=== PATIENT | female | born 1990 | race Caucasian/White ===

== ENCOUNTER 2017-02-08 19:29 | Emergency (ER) | payer OTHER ==
[~2017-02-08] VITALS: Ht 170.2 cm; Wt 84.1 kg
[2017-02-08 19:31] VITALS: TEMP 37; Ht 170.2 cm; Wt 84.1 kg
[2017-02-08] MEDS ORDERED: IBUP-1050 PO (20:11)
[2017-02-08] MEDS ORDERED: PHEN-905 PO (20:11)
[2017-02-08] MEDS ORDERED: DiphenhydrAMINE HCL 50 MG/ML VIAL IV STA (20:20)
[2017-02-08] MEDS ORDERED: ACETAMINOPHEN 325 MG TAB PO STA (20:20)
[2017-02-08] MEDS ORDERED: SODIUM CHLORIDE 0.9% 1000ML 1,000 ML IV STA (20:20)
[2017-02-08] MEDS ORDERED: PROCHLORPERAZINE 5 MG/ML 2 ML VIAL IV STA (20:20)
[2017-02-08 21:02] LABS: HEMATOCRIT 38.7 % (37-47); MEAN CELL VOLUME 86.8 fL (80-100); MEAN CORPUSCULAR HEMOGLOBIN 29.1 pg (25-34); MEAN CORPUSCULAR HGB CONC 33.6 g/dl (32-36); MEAN PLATELET VOLUME 10.4 fL (7.4-10.4); PLATELET COUNT 218 K/uL (130-400); RED BLOOD COUNT 4.46 M/uL (4.2-5.4); WHITE BLOOD COUNT 8.88 K/uL (4.8-10.8)
[2017-02-08 21:12] LABS: INR 1.2 (0.9-1.1); PARTIAL THROMBOPLASTIN RATIO 1.3; PROTHROMBIN TIME (PATIENT) 12.4 SECONDS (9.0-12.0)
[2017-02-08 21:24] LABS: BUN/CREATININE RATIO 9.4 (10-20); CALCIUM 8.5 mg/dl (8.5-10.1); CREATININE 0.87 mg/dl (0.60-1.20); POTASSIUM 3.1 mmol/L (3.5-5.1)
[2017-02-08 21:25] LABS: COMPLETE YES; IG% 0.2 %; LYMPH % 6.1 %; LYMPH ABS # 0.54 K/uL (1.2-3.4); MONO % 4.6 %; NEUT % 89.1 %; VACUOLIZATION 1+
--- NOTE | 2017-02-08 22:05 | DIAGNOSTIC IMAGING REPORT ---
CHEST 2 VIEWS ROUTINE CLINICAL HISTORY: Fever. Cough. COMPARISON STUDY: Chest radiograph August 19, 2013. FINDINGS: Lung volumes are normal. There is no pneumothorax or pleural effusion. Cardiac size is normal. Mediastinal contours are normal. There is no evidence of pulmonary edema. There is mild linear and nodular opacity within each lung. There is no lobar consolidation. IMPRESSION: Mild linear and nodular opacities within the lungs. The findings could reflect a mild infectious process or atelectasis. Radiographic follow-up to ensure resolution is recommended. Electronically signed by: Sherif Dash M.D. 02/08/2017 10:03 PM Dictated Date/Time: 02/08/2017 10:02 PM
[2017-02-08 22:06] LABS: LYME DISEASE AB IGG NEG (NEG); LYME DISEASE AB IGM NEG (NEG)
[2017-02-08] MEDS ORDERED: MAGNESIUM SULFATE 1GM / D5W 1 GM BAG IV STA (22:10)
[2017-02-08 22:30] VITALS: BP 105/60
[2017-02-08 22:35] LABS: INFLUENZA A PCR Neg for Influ A (NEG)
[2017-02-08 22:36] LABS: INFLUENZA B PCR POS for Influ B (NEG)
[2017-02-08] MEDS ORDERED: OSELTAMIVIR PHOSPHATE 75 MG CAP PO STA (22:50)
[2017-02-08] MEDS ORDERED: NF406 PO (22:53)
[2017-02-08] MEDS ORDERED: AZIT250T PO (22:53)
[2017-02-08 22:57] VITALS: PULSE 78; O2SAT 93
[2017-02-08] MEDS ORDERED: AZITHROMYCIN 250 MG TAB PO ONE (23:00)
--- NOTE | 2017-02-09 01:15 | EMERGENCY ROOM VISIT NOTE ---
History Report prepared by Nicole: Eloise Seaman Under the Supervision of: Dr. Eren Aguiar M.D. First contact with patient: 20:10 Chief Complaint: FEVER Stated Complaint: FEVER OF 103.5 History of Present Illness The patient is a 26 year old female who presents to the Emergency Room with complaints of an intermittent fever for the past 3 days. Her temperature this evening was 103.5 and she took ibuprofen for her symptoms at 1730. The patient reports a right-sided headache for the past 3 days as well. She has a history of migraine headaches and states that her current headache feels similar to previous migraines. She rates her current pain as a 7/10 in severity and describes it as achy. She notes neck pain, which is not unusual for her migraines. Her headache is not worse with light. The patient has had a productive cough as well. She notes burning pain in the middle of her chest and some shortness of breath with exertion. She had 1 episode of vomiting yesterday. She has not eaten today. The patient denies sore throat, congestion, and any other sinus symptoms. She denies chance of . Her daughter is sick with a cough. The patient did not get a flu shot this year. Source of History: patient Onset: 3 days ago Position: head (fever) Symptom Intensity: 7/10 Quality: ache Timing: intermittent Modifying Factors (Relieving): ibuprofen Associated Symptoms: + chest pain, + cough, + headache, + neck pain, + vomiting, No SOB, No sorethroat Review of Systems See HPI for pertinent positives & negatives. A total of 10 systems reviewed and were otherwise negative. Past Medical & Surgical Medical Problems: (1) Calculus of kidney (2) Migraine headache Family History Diabetes mellitus Heart disease Social History Smoking Status: Current Every Day Smoker Alcohol Use: occasionally Drug Use: none Marital Status: in relationship Housing Status: lives with family Occupation Status: employed Current/Historical Medications Scheduled Azithromycin (Zithromax), 250 MG PO DAILY Ibuprofen (Advil), 200-600 MG PO Q4H Oseltamivir Phosphate (Tamiflu), 75 MG PO BID Ejwbcmeqjpzsf-Ehkjimqaqj-Lmctc (Nyquil Severe Cold/Flu 5-6.25-10-325 mg/15Ml), 15 ML PO DIRECTED Allergies Coded Allergies: No Known Allergies (Verified , 02/08/17) Physical Exam Vital Signs Date Time Temp Pulse Resp B/P Pulse Ox O2 Delivery O2 Flow Rate FiO2 02/08/17 22:57 78 16 93 Room Air 02/08/17 22:30 76 16 105/60 93 Room Air 02/08/17 21:28 86 18 93 Room Air 02/08/17 19:31 37.0 116 18 118/72 94 Room Air Physical Exam Constitutional: Vital signs reviewed. Eyes: Pupils are equal round reactive to light. Conjunctiva are noninjected. ENT: Pharynx is clear without erythema or exudate. Mucous membranes are moist. Neck supple without meningeal signs. Respiratory: Clear to auscultation bilaterally. Breath sounds are equal bilaterally. Cardiovascular: Regular rate and rhythm. No rubs or gallops. GI: Soft, nondistended and nontender. Bowel sounds are present. Musculoskeletal: No peripheral edema. Integumentary: No cyanosis. Neurological: The patient is awake and alert. Cranial nerves II-XII are intact. Motor is 5 out of 5 all extremities. Sensation is intact to light touch all extremities. Normal speech. No pronator drift. Negative Kernig and Brudzinski sign. Psychiatric: Normal affect. Medical Decision & Procedures ER Provider Diagnostic Interpretation: Radiology results as stated below per my review and the radiologist's interpretation: CHEST 2 VIEWS ROUTINE CLINICAL HISTORY: Fever. Cough. COMPARISON STUDY: Chest radiograph August 19, 2013. FINDINGS: Lung volumes are normal. There is no pneumothorax or pleural effusion. Cardiac size is normal. Mediastinal contours are normal. There is no evidence of pulmonary edema. There is mild linear and nodular opacity within each lung. There is no lobar consolidation. IMPRESSION: Mild linear and nodular opacities within the lungs. The findings could reflect a mild infectious process or atelectasis. Radiographic follow-up to ensure resolution is recommended. Electronically signed by: Sherif Dash M.D. 02/08/2017 10:03 PM Dictated Date/Time: 02/08/2017 10:02 PM Laboratory Results 02/08/17 20:46 Red Blood Count 4.46, Mean Corpuscular Volume 86.8, Mean Corpuscular Hemoglobin 29.1, Mean Corpuscular Hemoglobin Concent 33.6, Mean Platelet Volume 10.4, Neutrophils (%) (Auto) 89.1, Lymphocytes (%) (Auto) 6.1, Monocytes (%) (Auto) 4.6, Eosinophils (%) (Auto) 0.0, Basophils (%) (Auto) 0.0, Neutrophils # (Auto) 7.91, Lymphocytes # (Auto) 0.54, Monocytes # (Auto) 0.41, Eosinophils # (Auto) 0.00, Basophils # (Auto) 0.00 02/08/17 20:46 Test 02/08/17 20:46 02/08/17 20:55 White Blood Count 8.88 K/uL (4.8-10.8) Red Blood Count 4.46 M/uL (4.2-5.4) Hemoglobin 13.0 g/dL (12.0-16.0) Hematocrit 38.7 % (37-47) Mean Corpuscular Volume 86.8 fL (80-100) Mean Corpuscular Hemoglobin 29.1 pg (25-34) Mean Corpuscular Hemoglobin Concent 33.6 g/dl (32-36) Platelet Count 218 K/uL (130-400) Mean Platelet Volume 10.4 fL (7.4-10.4) Neutrophils (%) (Auto) 89.1 % Lymphocytes (%) (Auto) 6.1 % Monocytes (%) (Auto) 4.6 % Eosinophils (%) (Auto) 0.0 % Basophils (%) (Auto) 0.0 % Neutrophils # (Auto) 7.91 K/uL (1.4-6.5) Lymphocytes # (Auto) 0.54 K/uL (1.2-3.4) Monocytes # (Auto) 0.41 K/uL (0.11-0.59) Eosinophils # (Auto) 0.00 K/uL (0-0.5) Basophils # (Auto) 0.00 K/uL (0-0.2) RDW Standard Deviation 43.2 fL (36.4-46.3) RDW Coefficient of Variation 13.5 % (11.5-14.5) Immature Granulocyte % (Auto) 0.2 % Immature Granulocyte # (Auto) 0.02 K/uL (0.00-0.02) Toxic Vacuolation 1+ Prothrombin Time 12.4 SECONDS (9.0-12.0) Prothromb Time International Ratio 1.2 (0.9-1.1) Activated Partial Thromboplast Time 32.7 SECONDS (21.0-31.0) Partial Thromboplastin Ratio 1.3 Anion Gap 10.0 mmol/L (3-11) Est Creatinine Clear Calc Drug Dose 109.2 ml/min Estimated GFR () 106.6 Estimated GFR (Non- 91.9 BUN/Creatinine Ratio 9.4 (10-20) Calcium Level 8.5 mg/dl (8.5-10.1) Total Bilirubin 0.4 mg/dl (0.2-1) Direct Bilirubin 0.1 mg/dl (0-0.2) Aspartate Amino Transf (AST/SGOT) 15 U/L (15-37) Alanine Aminotransferase (ALT/SGPT) 16 U/L (12-78) Alkaline Phosphatase 73 U/L (45-117) Total Protein 7.2 gm/dl (6.4-8.2) Albumin 3.7 gm/dl (3.4-5.0) Lyme Disease IgG Antibody NEG (NEG) Lyme Disease IgM Antibody NEG (NEG) Influenza Type A (RT-PCR) Neg for Influ A (NEG) Influenza Type B (RT-PCR) POS for Influ B (NEG) Laboratory results as reviewed by me. Medications Administered Medications (Trade) Dose Ordered Sig/Be Route Start Time Stop Time Status Last Admin Dose Admin Sodium Chloride (Nss 1000ml) 1,000 ml @ 999 mls/hr Q1H1M STAT IV 02/08/17 20:20 02/08/17 21:20 DC 02/08/17 20:51 999 MLS/HR Prochlorperazine Edisylate (Compazine Inj) 10 mg NOW STAT IV 02/08/17 20:20 02/08/17 20:23 DC 02/08/17 20:51 10 MG Diphenhydramine HCl (Benadryl Inj) 50 mg NOW STAT IV 02/08/17 20:20 02/08/17 20:23 DC 02/08/17 20:51 50 MG Acetaminophen (Tylenol Tab) 650 mg NOW STAT PO 02/08/17 20:20 02/08/17 20:23 DC 02/08/17 20:52 650 MG Oseltamivir Phosphate (Tamiflu Cap) 75 mg NOW STAT PO 02/08/17 22:50 02/08/17 22:52 DC 02/08/17 23:03 75 MG Azithromycin (Zithromax Tab) 500 mg NOW ONCE PO 02/08/17 23:00 02/08/17 23:01 DC 02/08/17 23:03 500 MG ED Course 2009: The patient was evaluated in room B5. A complete history and physical exam was performed. 2020: Tylenol tab 650 mg PO, Benadryl 50 mg IV, Compazine 10 mg IV, NSS 1000 ml @ 999 mls/hr IV 2130: I reassessed the patient at this time. She is still having a headache. I discussed the risks and benefits associated with an LP and she expressed understanding. 2232: The patient states that her headache has almost completely resolved. 2249: I reassessed the patient at this time. She is feeling better and resting comfortably. Her headache has completely resolved. I discussed the results and treatment plan with the patient. I answered all pertaining questions that she had. She expressed understanding and verbalized agreement. The patient will be discharged home. 2250: Tamiflu Cap 75 mg PO 2300: Azithromycin 500 mg PO Medical Decision This is a 26-year-old female presents with fever and headache. Differential diagnosis includes influenza, pneumonia, meningitis, encephalitis, migraine. I did perform a limited focused review of portions of the patient's old chart on the electronic medical record. The patient has had no recent pertinent visits to this hospital. I did evaluate the patient as noted above. She is presenting with fever and flulike symptoms. She does have a history of migraines and states that her headache is similar to her prior migraines. She states that it is not unusual for her to have neck pain with her migraines as well. She was mostly concerned about her pulmonary symptoms. IV access was established. I did treat patient with Tylenol. She was also given Benadryl, Compazine and saline IV. She denied any chance of and declined testing. I did order and personally review the patient's chest x-ray as described above. I did order and review the patient's blood work as noted in the electronic medical record. Her white blood cell count is not elevated. Lyme testing is negative. I did reassess the patient. She states that she has no improvement of her headache. At that time I discussed the possibility of obtaining a lumbar puncture for meningitis as her headache did not respond to migraine medications. We were still waiting for the flu swab results. I did order IV magnesium for the patient for her headache. When the nurse went to give her the IV magnesium she told her that the headache had nearly gone away. I did reassess her again and she told me that the headache is almost completely gone. At this point I did feel meningitis was less likely given her improvement with Compazine and Benadryl and normal saline. The PCR flu test did come back positive for influenza B. I did discuss the test results with the patient. She states that her headache is nearly gone. I did discuss the test results with her and her general service officer. She was treated with Tamiflu and Zithromax for possible early pneumonia on chest x-ray. She is not short of breath or hypoxic. She was discharged with a prescription for Tamiflu and Zithromax and advised follow with her doctor. Impression Primary Impression: Influenza B Additional Impressions: Headache Pneumonia Scribe Attestation The scribe's documentation has been prepared under my direct and personally reviewed by me in its entirety. I confirm that the note above accurately reflects all work, treatment, procedures, and medical decision making performed by me. Departure Information Dispostion Home / Self-Care Prescriptions Oseltamivir Phosphate (Tamiflu) 75 Mg Cap 75 MG PO BID, #9 CAP Prov: Eren Aguiar M.D. 02/08/17 Azithromycin (Zithromax) 250 Mg Tab 250 MG PO DAILY, #4 TAB Prov: Eren Aguiar M.D. 02/08/17 Referrals Roly Baker M.D. (PCP) Forms HOME CARE DOCUMENTATION FORM, IMPORTANT VISIT INFORMATION, Work Instructions Patient Instructions ED Flu, [facility] Additional Instructions You have been examined and treated today on an emergency basis only. This is not a substitute for, or an effort to provide, complete comprehensive medical care. It is impossible to recognize and treat all injuries or illnesses in a single emergency department visit. It is therefore important that you follow up closely with your physician. Call as soon as possible for an appointment. Return for worsening symptoms or if you develop rash, vomiting, or any other concerning symptoms. Problem Qualifiers Additional Impressions: Headache Headache type: unspecified Headache chronicity pattern: acute headache Intractability: not intractable Qualified Codes: R51 - Headache Pneumonia Pneumonia type: due to unspecified organism Laterality: bilateral Lung location: unspecified part of lung Qualified Codes: J18.9 - Pneumonia, unspecified organism
== END 2017-02-08 23:09 | disposition home or self-care (01) ==
LOC: C.EDB 19:30
DX: J10.00 Influenza due to other identified influenza virus with unspecified type of pneumonia (principal); R51 Headache; J18.9 Pneumonia, unspecified organism; M54.2 Cervicalgia; R05 Cough; F17.200 Nicotine dependence, unspecified, uncomplicated; Z87.442 Personal history of urinary calculi; Z83.3 Family history of diabetes mellitus

== ENCOUNTER 2018-07-08 21:37 | Emergency (ER) | payer OTHER ==
[~2018-07-08] VITALS: Ht 170.2 cm; Wt 83.4 kg
[~2018-07-08 21:37] MED LIST: IBUP-1050 PO; PHEN-905 PO
[2018-07-08 21:43] VITALS: TEMP 36.6; Ht 170.2 cm; Wt 83.4 kg
[2018-07-08] MEDS ORDERED: DIPHTHERIA/TETANUS/PERTUSSIS 0.5 ML SYR/VIAL IM. ONE (22:15)
--- NOTE | 2018-07-08 22:38 | EMERGENCY ROOM VISIT NOTE ---
History Report prepared by Nicole: Hakan Mancilla Under the Supervision of: Dr. Cristhian Monroe M.D. First contact with patient: 22:08 Chief Complaint: BITE Stated Complaint: DOG BITE ON RIGHT HAND/WRIST History of Present Illness The patient is a 27 year old female who presents to the Emergency Room with complaints of constant pain to the right hand and wrist due to getting bitten by her dog about an hour ago. The patient states that the dog is up to date on its vaccinations. Pain is mild in nature, nonradiating and localized to the dog bite areas. No active bleeding. Source of History: patient Onset: Hour ago Position: wrist (right), hand (right) Symptom Intensity: moderate Timing: constant Associated Symptoms: No numbness Review of Systems See HPI for pertinent positives and negatives. A total of ten systems were reviewed and were otherwise negative. Past Medical & Surgical Medical Problems: (1) Calculus of kidney (2) Migraine headache Family History Diabetes mellitus Heart disease Social History Smoking Status: Current Every Day Smoker Alcohol Use: occasionally Drug Use: none Marital Status: in relationship Housing Status: lives with family Occupation Status: employed Current/Historical Medications Scheduled Amoxicillin & Pot Clavulanate (Augmentin 875-125 mg), 875 MG PO BID Allergies Coded Allergies: No Known Allergies (Verified , 02/08/17) Physical Exam Vital Signs Date Time Temp Pulse Resp B/P (MAP) Pulse Ox O2 Delivery O2 Flow Rate FiO2 07/08/18 23:27 83 18 110/65 98 07/08/18 21:43 36.6 104 18 130/78 98 Room Air Physical Exam Physical Exam GENERAL: She is oriented to person, place, and time. She appears well- developed and well-nourished. She does not appear distressed. HENT: Exam performed. Head: Normocephalic and atraumatic. Right Ear: External ear normal. No mastoid tenderness. Left Ear: External ear normal. No mastoid tenderness. Mouth/Throat: The oropharynx is clear and moist. No trismus in the jaw. No dental abscesses or uvula swelling. No oropharyngeal exudate or tonsillar abscesses. EYES: Conjunctivae and EOM are normal. Pupils are equal, round, and reactive to light. Right eye exhibits no discharge. Left eye exhibits no discharge. No scleral icterus. NECK: Normal range of motion. Neck supple. No JVD present. No spinous process tenderness present. No carotid bruit present. No rigidity. No tracheal deviation and normal range of motion present. No Brudzinski's sign and no Kernig 's sign noted. CV: Normal rate, regular rhythm, normal heart sounds and intact distal pulses. There is no peripheral edema. Palpable radial pulses bue. PULM/CHEST: Effort normal and breath sounds normal. No respiratory distress. No stridor. She has no wheezes. She has no rales. Chest Wall: She exhibits no tenderness. ABD: The abdomen is soft. Bowel sounds are normal. She has no distension. No mass is present. There is no tenderness. There is no rebound, no guarding, no Gutierrez's sign and no tenderness at McBurney's point. Rovsig negative MUSC/SKEL: Normal range of motion. There is no peripheral edema, tenderness or deformity. Palpable radial and ulnar pulses bilaterally. compartments are soft bilaterally. Motor and sensation intact in the radial, median, and ulnar nerve distribution bilaterally. LYMPH: No cervical adenopathy. NEURO: She is alert and oriented to person, place, and time. She has normal strength. No cranial nerve deficit or sensory deficit. Coordination and gait normal. GCS eye subscore is 4. GCS verbal subscore is 5. GCS motor subscore is 6. Cerebellar tests wnl. SKIN: Skin is warm and dry. She is not diaphoretic. Bite manzo to right forearm and hand, no active bleeding or purulent discharge. No erythema or surrounding fluctuance. PSYCH: She has a normal mood and affect. Behavior is normal. Judgment and thought content normal. Medical Decision & Procedures ER Provider Diagnostic Interpretation: Radiology results as stated below per my review and radiologist interpretation: RIGHT FOREARM 2 VIEWS HISTORY: dog bite distal forearm COMPARISON: None. FINDINGS: There is no fracture or dislocation. Soft tissue swelling/laceration within the distal forearm demonstrated by soft tissue gas. No radiopaque foreign bodies. IMPRESSION: No fractures. Soft tissue swelling/laceration within the distal right forearm. Electronically signed by: Phill Esparza M.D. 07/08/2018 10:51 PM Dictated Date/Time: 07/08/2018 10:50 PM Medications Administered Medications (Trade) Dose Ordered Sig/Be Route Start Time Stop Time Status Last Admin Dose Admin Diphtheria/ Pertussis/Tetanus Vacc (Adacel Inj) 0.5 ml ONCE ONCE IM. 07/08/18 22:15 07/08/18 22:16 DC 07/08/18 22:41 0.5 ML Amoxicillin/ Clavulanate Potassium (Augmentin Tab) 875 mg NOW ONCE PO 07/08/18 23:00 07/08/18 23:01 DC 07/08/18 23:06 875 MG Ketorolac Tromethamine (Toradol Inj) 15 mg STK-MED ONCE .ROUTE 07/08/18 23:01 07/08/18 23:02 DC 07/08/18 23:07 15 MG ED Course 2210: The patient was evaluated in room C4. A complete history and physical exam was performed. 2215: Tetanus Vacc .5ml IM 2300: Vital signs stable. X-ray negative. Wounds were irrigated and washed and dressed. Tetanus updated. Patient will be discharged with antibiotics and follow-up PCP. Amoxicillin 875mg PO first dose given in the emergency department. Toradol 15mg .ROUTE DISCHARGE - Plan of care discussed with patient and questions answered. The patient was given both verbal and printed discharge instructions. The patient verbalized understanding and ability to comply. The patient is to seek outpatient follow up as noted in the discharge instructions. The patient verbalized understanding and ability to comply. The patient is discharged in stable condition. The patient was instructed to return for worsening symptoms. Medical Decision Vital signs stable. X-ray negative. Wounds were irrigated and washed and dressed. Tetanus updated. Patient will be discharged with antibiotics and follow-up PCP. Amoxicillin 875mg PO first dose given in the emergency department. Toradol 15mg .ROUTE DISCHARGE - Plan of care discussed with patient and questions answered. The patient was given both verbal and printed discharge instructions. The patient verbalized understanding and ability to comply. The patient is to seek outpatient follow up as noted in the discharge instructions. The patient verbalized understanding and ability to comply. The patient is discharged in stable condition. The patient was instructed to return for worsening symptoms. Medication Reconcilliation Current Medication List: was personally reviewed by me Blood Pressure Screening Patient's blood pressure: Normal blood pressure Impression Primary Impression: Dog bite Scribe Attestation The scribe's documentation has been prepared under my direction and personally reviewed by me in its entirety. I confirm that the note above accurately reflects all work, treatment, procedures, and medical decision making performed by me. The chart was completed utilizing [employer] Speech voice recognition software. Grammatical errors, random word insertions, pronoun errors, and incomplete sentences are an occasional consequence of this system due to software limitations, ambient noise, and hardware issues. Any formal questions or concerns about the content, text, or information contained within the body of this dictation should be directly addressed to the physician for clarification. Departure Information Dispostion Home / Self-Care Prescriptions Amoxicillin & Pot Clavulanate (Augmentin 875-125 mg) 1 Tab Tab 875 MG PO BID for 7 Days, #14 TAB Prov: Cristhian Monroe M.D. 07/08/18 Referrals Roly Baker M.D. (PCP) Forms HOME CARE DOCUMENTATION FORM, IMPORTANT VISIT INFORMATION Patient Instructions [facility] Problem Qualifiers Primary Impression: Dog bite Encounter type: initial encounter Qualified Codes: W54.0XXA - Bitten by dog , initial encounter
--- NOTE | 2018-07-08 22:52 | DIAGNOSTIC IMAGING REPORT ---
RIGHT FOREARM 2 VIEWS HISTORY: dog bite distal forearm COMPARISON: None. FINDINGS: There is no fracture or dislocation. Soft tissue swelling/laceration within the distal forearm demonstrated by soft tissue gas. No radiopaque foreign bodies. IMPRESSION: No fractures. Soft tissue swelling/laceration within the distal right forearm. Electronically signed by: Phill Esparza M.D. 07/08/2018 10:51 PM Dictated Date/Time: 07/08/2018 10:50 PM
[2018-07-08] MEDS ORDERED: KETOROLAC TROMETHAMINE 60 MG/2 ML VIAL IM STA (22:57)
[2018-07-08] MEDS ORDERED: AMOX875T PO (22:57)
[2018-07-08] MEDS ORDERED: AMOXICILLIN/CLAVULANATE TAB 875 MG TAB PO ONE (23:00)
[2018-07-08] MEDS ORDERED: KETOROLAC TROMETHAMINE 15 MG/ML VIAL ONE (23:01)
[2018-07-08 23:27] VITALS: BP 110/65; PULSE 83; O2SAT 98
== END 2018-07-08 23:29 | disposition home or self-care (01) ==
LOC: C.EDB 21:39 → C.EDC 23:29
DX: S69.91XA Unspecified injury of right wrist, hand and finger(s), initial encounter (principal); W54.0XXA Bitten by dog, initial encounter; F17.200 Nicotine dependence, unspecified, uncomplicated; Z23 Encounter for immunization